=== PATIENT | female | born 1965 | race Caucasian/White ===

== ENCOUNTER 2018-05-15 10:03 | Day surgery (SDC) | payer OTHER ==
[2018-05-13 12:25] VITALS: BMI 41.1
[2018-05-15 10:29] VITALS: TEMP 98.2
[2018-05-15] MEDS ORDERED: LIDOCAINE HCL 2% (20ML MULTI-DOSE VIAL) NR ONE (10:48)
[2018-05-15] MEDS ORDERED: PROPOFOL 20 ML ONE ×2 (10:54→11:46)
[2018-05-15] MEDS ORDERED: MIDAZOLAM HCL 2 MG/2 ML SINGLE DOSE VIAL ONE (10:54)
[2018-05-15] MEDS ORDERED: LIDOCAINE HCL/PF 2% SDV 5ML VIAL ONE (10:54)
[2018-05-15] MEDS ORDERED: LIDOCAINE HCL 2% (50ML VIAL) NR ONE (11:30)
[2018-05-15] MEDS ORDERED: ONDANSETRON 4 MG/2 ML VIAL IVPUSH PRN (11:52)
[2018-05-15] MEDS ORDERED: oxyCODONE HCL 5 MG TABLET PO PRN ×2 (11:52)
[2018-05-15] MEDS ORDERED: PROMETHAZINE HCL 25 MG/1 ML VIAL IVPUSH PRN (11:52)
[2018-05-15 13:38] VITALS: BP 120/60; PULSE 64
--- NOTE | 2018-05-16 09:47 | OP ---
DATE OF OPERATION: 05/15/2018 PREOPERATIVE DIAGNOSIS: Left carpal tunnel syndrome. POSTOPERATIVE DIAGNOSIS: Left carpal tunnel syndrome. OPERATIVE PROCEDURE: Left carpal tunnel release. ANESTHESIA: Local with sedation. COMPLICATIONS: None. ESTIMATED BLOOD LOSS: Minimal. INDICATION FOR PROCEDURE: The patient is a 52-year-old female with the above finding, indicated for operative treatment. Risks, benefits, and alternatives were discussed with the patient at length. Proper informed consent was obtained. PROCEDURE: After proper identification of the patient and correct operative site, patient was brought to the operating room and placed supine on the operative table. Prominences were well padded. Sedation and local anesthesia were given. Left upper extremity was prepped and draped in usual sterile fashion. A well-padded tourniquet was placed with a sterile prep. An Esmarch bandage was used to exsanguinate the left upper extremity. Tourniquet was inflated to 250 mmHg. A longitudinal incision was made in the proximal aspect of the palm. Incision was taken sharply through the skin with blunt and sharp dissection through the subcutaneous tissues. Palmar fascia was divided longitudinally. Transcarpal ligament was divided longitudinally along with the distal 4 cm of the antebrachial fascia under direct visualization with loupe magnification. This provided complete release of the median nerve at the wrist. Wound was repaired with a 5-0 fast-absorbing plain-gut suture. Sterile dressings were applied. Patient was brought to Recovery in stable condition. She tolerated the procedure well. SHAY GTZ M.D. [id number]
== END 2018-05-15 13:00 | disposition home or self-care (01) ==
LOC: FASU 10:03
PROVIDERS: ATTEND Orthopaedic Surgery Hand Surgery
PROC: 01N50ZZ Release Median Nerve, Open Approach (ICD-10-PCS; principal; 2018-05-15 11:35)
DX: G56.02 Carpal tunnel syndrome, left upper limb (principal)
CPT/HCPCS: 84703

== ENCOUNTER 2019-11-26 07:23 | Day surgery (SDC) | payer OTHER ==
--- OUTSIDE RECORDS SUMMARY | 2019-11-12 11:33 | XMS ---
:1965 [facility] Providers Name Role Phone Stephanie Ely Unavailable [email or web address] Stephanie Ely Unavailable [email or web address] Stephanie Ely Unavailable [email or web address] Stephanie Ely Unavailable [email or web address] CHIQUIS CHASE MD Unavailable Unavailable MELNIKAU Unavailable Unavailable RIZQALLA Unavailable Unavailable GENESIS RAMIREZ Unavailable Unavailable Lola Deshpande PA-C Unavailable Lola Deshpande PA-C Unavailable Lola Deshpande PA-C Unavailable Justice WEBSTER Unavailable Unavailable Justice WEBSTER Unavailable Unavailable Justice WEBSTER Unavailable Unavailable Justice WEBSTER Unavailable Unavailable Justice WEBSTER Unavailable Unavailable Justice WEBSTER Unavailable Unavailable BHAVIN WEBSTER, ILYA Unavailable Unavailable Re-disclosure Warning The records that you are about to access may contain information from federally- assisted alcohol or drug abuse programs. If such information is present, then the following federally mandated warning applies: This information has been disclosed to you from records protected by federal confidentiality rules (42 CFR part 2). The federal rules prohibit you from making any further disclosure of this information unless further disclosure is expressly permitted by the written consent of the person to whom it pertains or as otherwise permitted by 42 CFR part 2. A general authorization for the release of medical or other information is NOT sufficient for this purpose. The Federal rules restrict any use of the information to criminally investigate or prosecute any alcohol or drug abuse patient.The records that you are about to access may contain highly sensitive health information, the redisclosure of which is protected by Article 27-F of the [facility] Public Health law. If you continue you may haveaccess to information: Regarding HIV / AIDS; Provided by facilities licensed or operated by the [facility] Office of Mental Health; or Provided by the [facility] Office for People With Developmental Disabilities. If such information is present, then the following [facility] mandated warning applies: This information has been disclosed to you from confidential records which are protected by state law. State law prohibits you from making any further disclosure of this information without the specific written consent of the person to whom it pertains, or as otherwise permitted by law. Any unauthorized further disclosure in violation of state law may result in a fine or fdc sentence or both. A general authorization for the release of medical or other information is NOT sufficient authorization for further disclosure. Advance Directives Directive Description Laborer Airport Maintenance Ct Scan Technician Status Observation Data S ource(s) Description 1. NONE [facility] 1. NONE [facility] 1. NONE [facility] 1. NONE [facility] 1. NONE [facility] 1[facility] NONE [facility] 1. NONE [facility] 1. NONE [facility] 1. NONE [facility] 1. NONE [facility] 1. NONE [facility] 1. NONE [facility] 1. NONE [facility] Allergies and Adverse Reactions Type Description Substance Reaction Status Data Source(s ) Propensity to DOG DANDER Dog Dander Itching Medium Active [facility] adverse reactions (qualifier [facility] to substance value) [facility] Medium Propensity to CAT DANDER Cat Dander Itching Medium Active (qualifier [facility] adverse reactions value) [facility] to substance [facility] Medium Drug allergy No Known Allergies No Known Allergies [facility] Encounters Encounter Providers Location Date Indications Data Source(s ) Outpatient 01/27/2019 02:15:00 [facility] PM EST - 01/27/2019 [facility] 02:23:06 PM EST Patient discharged. Outpatient 01/05/2019 [facility] ([facility] 06:53:00 AM EST [facility] Outpatient 01/04/2019 [facility]EXTGEN ([facility] 06:44:00 AM EST [facility]) Outpatient 12/05/2018 [facility]20[facility] 11:59:00 PM EDT Outpatient 12/05/2018 [facility] - Good 08:18:44 AM EDT - Sydnee an 12/05/2018 Hospital 11:59:00 PM EDT Outpatient 10/10/2018 [facility] 01:39:54 PM EDT [facility] System [facility] Outpatient Attender: SILVIA KAYE 09/24/2018 CHEST PAIN R/O ACS [facility] R 10:18:00 PM EDT - HYPOKALEMIA MDAttender: 09/25/2018 TOMER 12:54:00 AM EDT ERIANAttender: FRANCESCA Ramirez r: NATALEE LLOYDAAjosé miguel r: FRANCESCA Plasencia ant: CHIQUIS CHASE MDConsultant: Clarita Deshpande PA-C CHEST PAIN R/O ACS HYPOKALEMIA Patient discharged. Outpatient Attender: Joycelyn 04/25/2018 12:00:00 AM [place]ELITZA [place] Justice MDReferrer: EDT Escobar edical) Brownminerva Ely Outpatient 04/15/2018 01:00:00 PM [facility] Cenify Care Team Connect [facility] Outpatient 04/15/2018 12:00:00 AM [facility] Cenify Let's Gift It [facility] Outpatient 04/04/2018 05:27:43 PM Geovanni n SecCalligo [facility] Outpatient 03/29/2018 11:40:02 AM Geovanni n SecHealcerion Tess CN Creative [facility] Outpatient 03/28/2018 01:08:07 PM [facility] 01:37:19 PM EST Outpatient 03/28/2018 12:00:00 AM Geovanni n SecCalligo [facility] Medications Medication Brand Start Product Dose Route Administrative Pharmacy St at Indications Reaction Description Data Name Date Form Instructions Instructions Source(s) celecoxib celeco Oral active Take 1 Ca p Bon 200 MG Oral xib 2019 mg by mouth Seco urs Capsule (CELEB 12:00: daily as Rupali ity celecoxib JEREMY) 00 AM needed for Hea lth (CELEBREX) 200 mg EST Pain for up [facility] 200 mg capsul to 15 days. capsule e technetium IntraV complet 30 Geovanni n sestamibi 2018 mCi ENous ed millicurie, Se cours (CARDIOLITE 09:30: IntraVENous , Tess ) injection 00 AM RAD ONCE, 1 Health 30 EDT dose, [place] [facility] millicurie 12/05/18 at 1000 Medication administered onsite regadenoson [id number] 12/05/2018 0.4 IntraVENous completed 0.4 mg, Bon (LEXISCAN) 09:00:00 AM mg IntraVE Nous, [facility]ours injection 0.4 EDT ONCE, 1 dos e, Tess mg Lorena 12/05/18 Health at 0900 System Inc Medication administered onsite technetium 12/05/2018 10 IntraVENous completed 10 Bon sestamibi 09:00:00 AM mCi millicur ie, Sec[facility] (CARDIOLITE) EDT IntraVENous, Tess injection 10 RAD ONCE, 1 Health millicurie dose, [place] Syst em 12/05/18 at Inc 0900 Medication administered onsite desloratadine desloratadine 03/28/2018 5 mg Oral aborted Take 1 Bon 5 MG Oral (CLARINEX) 5 12:00:00 AM Tab by [facility] Tablet mg tablet EST mouth Tess desloratadine daily. Heal th (CLARINEX) 5 System mg tablet Inc Omeprazole 40 omeprazole 03/28/2018 40 mg Oral aborted Take 1 Bon MG Delayed (PRILOSEC) 40 12:00:00 AM Cap by [facility] Release Oral mg capsule EST mouth Tess Capsule nightly. Health omeprazole System (PRILOSEC) 40 Inc mg capsule 60 ACTUAT ADVAIR DISKUS 03/26/2018 aborted Bon Fluticasone 250-50 12:00:00 AM [facility] propionate mcg/dose EST Caity ty 0.25 MG/ACTUAT diskus inhaler Health / salmeterol System 0.05 MG/ACTUAT Inc Dry Powder Inhaler [Advair] ADVAIR DISKUS 250-50 mcg/dose diskus inhaler Prednisone 10 predniSONE 01/16/2018 10 mg Oral aborted Take 10 Bon MG Oral Tablet (DELTASONE) 10 12:00:00 AM mg by [facility] predniSONE mg tablet EST mouth Janice rity (DELTASONE) 10 three (3) Health mg tablet times System daily. Inc For 5d, 1 bid for 5d and 1 every day for 5d Nystatin nystatin 12/10/2017 524562 Oral aborted T kika 5 mL Bon 139901 UNT/ML (MYCOSTATIN) 12:00:00 AM U by mouth Secours Oral 100,000 EST four (4) Tess Suspension unit/mL times Healt h nystatin suspension daily. Sys tem (MYCOSTATIN) swish and In c 100,000 spit unit/mL suspension montelukast 10 montelukast 11/30/2017 10 mg Oral aborted Take 1 Bon MG Oral Tablet (SINGULAIR) 10 12:00:00 AM Tab by [facility] montelukast mg tablet EDT mouth Ch arity (SINGULAIR) 10 nightly. H ealth mg tablet System Inc Omeprazole 40 omeprazole 11/30/2017 40 mg Oral aborted Take 1 Bon MG Delayed (PRILOSEC) 40 12:00:00 AM Cap by [facility] Release Oral mg capsule EDT mouth Tess Capsule nightly. Health omeprazole System (PRILOSEC) 40 Inc mg capsule fluticasone Fluticasone 50 11/22/2017 2 Both aborted 2 Sprays Bon (FLONASE) 50 McG/Actuation 12:00:00 AM {spray} Nostrils by Both [facility] mcg/actuation Nasal [place], EDT Nos trils Tess nasal spray Susp route Health daily. System Inc azelastine Azelastine 137 11/09/2017 1 Both aborted 1 [place] Bon (ASTELIN) 137 McG Nasal 12:00:00 AM {spray} Nostrils by Both [facility] mcg (0.1 %) [place] Aerosol EDT Nost rils Tess nasal spray route two Hea lth (2) times System a day. Inc Use in each nostril as directed Guaifenesin MUCUS RELIEF 10/30/2017 aborted Bon 400 MG Oral 400 mg tablet 12:00:00 AM [facility] Tablet MUCUS EDT Tess RELIEF 400 mg Health tablet System Inc benzonatate benzonatate 10/23/2017 aborted Bon 100 MG Oral (TESSALON) 100 12:00:00 AM [facility] Capsule mg capsule EDT Charit y benzonatate Health (TESSALON) 100 Syste m mg capsule Inc Lisinopril 5 lisinopril 03/30/2017 active Bon MG Oral Tablet (PRINIVIL, 12:00:00 AM [facility] lisinopril ZESTRIL) 5 mg EST Etss (PRINIVIL, tablet Health ZESTRIL) 5 mg System tablet Inc Losartan losartan 03/30/2017 active Bon Potassium 100 (COZAAR) 100 12:00:00 AM [facility] MG Oral Tablet mg tablet EST Tess losartan Health (COZAAR) 100 System mg tablet Inc Amlodipine 5 amLODIPine 12/16/2015 5 mg Oral aborted Take 1 Bon MG Oral Tablet (NORVASC) 5 mg 12:00:00 AM Tab by [facility] amLODIPine tablet EST mouth Charit y (NORVASC) 5 mg daily. Hea lt tablet System Inc [place]-3 Fatty 769584 1 Oral active Take 1 Bon Acids (FISH {capsul Cap by Sec ours OIL) 500 mg e} mouth Tess cap daily. Let's Gift It System [employer] Insurance Providers Payer name Policy type Policy ID Covered Covered libertarian's Policy P alyson / Coverage libertarian ID relationship to Bailey Inf ormation type bailey [facility] [id number] MEDICAID [facility] [id number] [facility] [id number] [facility] [id number] [facility] [id number] [facility] Managed Care [id number] MED[place] MVP [id number] 800 HEALTH PLAN MVP MEDICAID [id number] Patient is [id number] Insured [facility] [id number] Patient is [id number] Insured MVP MEDICAID [id number] SP [id number] [facility] [id number] SP [id number] [facility] [id number] [facility] [id number] [facility] [id number] [facility] [id number] [facility] Problems, Conditions, and Diagnoses Code Display Name Description Problem Type Effective Dates Data Source(s) R05 Chronic cough Chronic cough 34969741 12/01/2017 [facility] 12:00:00 AM EDT Tess H ealth [facility] I10 Essential Essential 00212802 12/01/2017 [facility] hypertension hypertension 12:00:00 AM EDT [facility]ec[facility] Care Team Connect Inc E66.01 Obesity, morbid Obesity, morbid [id number] 04/19/2017 [facility] 12:00:00 AM EDT [employer] Z09 Follow up Follow up [id number] 11/09/2015 [facility] 12:00:00 AM EDT [employer] [employer] G56.03 Carpal tunnel Carpal tunnel Diagnosis NEXTGEN syndrome, syndrome, ([place] bilateral upper bilateral upper Medi ralph) limbs limbs M54.16 Radiculopathy, Radiculopathy, Diagnosis 01/27/2019 [facility] lumbar region lumbar region 01:56:15 PM EST [employer] R10.30 Lower abdominal Lower abdominal Diagnosis 01/27/2019 [facility] pain, unspecified pain, unspecified 01:56:15 PM [facility] [place] R07.9 Chest pain, Chest pain, Diagnosis 12/05/2018 [facility] - Good unspecified unspecified 07:30:00 AM EDT [facility] R06.00 Dyspnea, DYSPNEA, Diagnosis 09/27/2018 [facility] unspecified UNSPECIFIED 10:10:00 AM EDT E83.51 Hypocalcemia HYPOCALCEMIA Diagnosis 09/27/2018 [facility] 10:10:00 AM EDT E87.6 Hypokalemia HYPOKALEMIA Diagnosis 09/27/2018 [facility] 10:10:00 AM EDT R00.2 Palpitations PALPITATIONS Diagnosis 09/27/2018 [facility] 10:10:00 AM EDT R07.9 Chest pain, CHEST PAIN, Diagnosis [facility] UNSPECIFIED 10:10:00 AM EDT R07.89 Other chest pain OTHER CHEST PAIN Diagnosis 09/27/2018 [facility] 10:10:00 AM EDT J30.9 Allergic rhinitis, Allergic rhinitis, Diagnosis 9 [facility] unspecified unspecified 01:08:07 PM EST [place] Surgeries/Procedures Procedure Description Date Indications Data Source(s) MYOCARDIAL SPECT <td><content 12/05/2018 Chest pain [facility] MULTIPLE STUDIES ID="[id number]"> 03:09:29 PM [facility] NUCLEAR CARDIAC SPECT EDT System Inc STRESS & REST</content></td><t d>Routine</td><td> 11:09 AM EDT</td><td><paragrap h>Chest pain</paragraph></td> <td><paragraph styleCode="header">Re sults for this procedure are in the <content styleCode="xLink2-Res [id number]">results section</content>.</p aragraph></td> Chest pain MUSC TST DONE W/NERV TST 04/25/2018 12:00:00 AM EDT - PENDING SALE TO [facility] ([facility]) MAO 04/25/2018 12:00:00 AM EDT NRV CNDJ TEST 11-12 04/25/2018 12:00:00 AM EDT - PENDING SALE TO [facility] ([facility]) STUDIES 04/25/2018 12:00:00 AM EDT Results ID Date Data Source [id number] 12/09/2018 06:16:02 PM EST [facility] - Go [address] [place], [place] [address]MGJYMFI: SANTO RANKINRN: [id number]: [id number]#: [id number] DATE: 12/05/2018 STRESS TESTLEXISCAN STRESS TESTTECHNIQUE: This is a 53-year-old fe male who came in for evaluation for chestpainwith mildly reduced LV ejection fraction. The patient had a Lexiscan stresstest,0.4 mg of Lexiscan injected f ollowed by sestamibi Cardiolite injection. Thepatientcomplained of shortness of ki ath after Lexiscan. Baseline EKG is normal sinusrhythm. No atrial or ventricular a rrhythmia. No ST-T changes suggestingischemiathough heart rate was 96 per minute, highest heart rate was about 100 perminute,lowest blood pressure was 135/86 mmHg, highest blood pressure was 165/89 mmHg.Overall, the patient tolerat ed well. Mild shortness of breath after Lexiscaninjection.IMPRESSION: No electr ocardiogram ischemia.RECOMMENDATIONS: Further recommendation after nuclear vladimir ging report. STEPHANIE NORTON MDDD: 12/05/2018 10 :42:46/MA /[id number] #: [id number] / [id number] Name Value Range Interpretation Code Description Data Dayana rce(s) Supporting Document(s ) ID Date Data Source [id number] 12/05/2018 09:55:19 AM EDT [facility] Pt received in Nuc Med Dept. ID confirm ed verbally and ID band. Pt statesshe's here for stress test. . Pre procedure chec klist completed: VSS.Procedure explained: Questions answered. Pt states she is no t : 11/30/2018. Saline lock in right arm: patent. Dr. Norton t be dside.Procedure started: patient tolerated well. VSS throughout. Post EKG/ VScomp leted and wnl. Pts saline lock dcd. Pt instructed to return to departmentin 30 minutes. Pt in satisfactory upon discharge from Nuc Med department. Name Value Range Interpretation Code Description Data Dayana rce(s) Supporting Document(s ) ID Date Data Source [id number] 09/25/2018 10:40:03 AM EDT [facility] EXAM: Portable Chest 10:49 PM HISTORY: Chest pain. REPORT: The lungs are clear. There is no pleural effusion. The cardiac, hilarand mediastinal silhouettes are unremarkable.IMPRESSION: No acute di sease. Name Value Range Interpretation Code Description Data Dayana rce(s) Supporting Document(s ) ID Date Data Source [id number] 09/25/2018 12:01:00 AM EDT [facility] Name Value Range Interpretation Description Data Sup porting Code Source(s) Document(s ) TSH REFLEX 1.40 0.40-4.00 [facility] ID Date Data Source [id number] 09/24/2018 11:55:00 PM EDT [facility] Name Value Range Interpretation Code Description Data Dayana rce(s) Supporting Document(s ) APTT 21.8 SEC 23.3-32.5 Below low normal [facility] This test is used to monitor H eparin Therapy ID Date Data Source [id number] 09/24/2018 11:55:00 PM EDT [facility] Name Value Range Interpretation Code Description Data Dayana rce(s) Supporting Document(s ) . * [facility] INR Range: 2.0 - 3.0 STD Dose: P rophylaxis and treatment of venous thrombosis, pulmonary embo lism or prevention of systemic embolism. INR Range: 2.5 - 3.5 High Dose: High Risk patients with mechanical heart valves. INR 0.97 0.9-1.1 [facility] . * [facility] . PT 10.3 SEC 9.6-11.8 [facility] This test is used to monitor Oral Anticoagulant Therapy ID Date Data Source [id number] 09/24/2018 11:54:00 PM EDT [facility] Name Value Range Interpretation Description Data Sup porting Code Source(s) Document(s ) GLUCOSE 128 70-110 Above high normal [place] MG/DL [facility] BUN 11 MG/DL 6-22 [facility] CREATININE 0.62 0.50-1.2 [place] MG/DL 0 Hospital SODIUM 143 135-145 [place] MMOL/L [facility] POTASSIUM 3.1 3.5-5.1 Below low normal [place] mmol/L [facility] CHLORIDE 112 98-106 Above high normal [place] MMOL/L [facility] CO2 18 20-29 Below low normal [place] MMOL/L [facility] CALCIUM 7.0 8.7-10.7 Below low normal [place] mg/dL [facility] TOT PROT 6.0 G/DL 6.1-8.0 Below low normal [facility] ALBUMIN 3.4 G/DL 3.3-5.0 [facility] GLOBULIN 2.6 G/DL 1.3-4.5 [facility] BILIRUBIN,TOTA <0.2 0.3-1.2 Below low normal [place] L mg/dL [facility] ALK PHOS 59 U/L 50-136 [facility] SGOT (AST) 14 U/L 8-42 [facility] SGPT (ALT) 15 U/L 30-65 Below low normal [facility] eGFR >60 ">60.0" [facility] mL/min./1.73 square meter eGFR IF >60 ">60.0" [facility] mL/min./1.73 square meter BILIRUBIN,DIRECT <0.2 MG/DL 0.0-0.3 [facility] al ID Date Data Source [id number] 09/24/2018 11:54:00 PM EDT [facility] Name Value Range Interpretation Description Data Sup porting Code Source(s) Document(s ) TROPONIN I <0.3 "<0.3" [place] ng/ml Hospital ID Date Data Source [id number] 09/24/2018 11:37:00 PM EDT [facility] Name Value Range Interpretation Description Data Sup porting Code Source(s) Document(s ) WHITE BLOOD 7.0 4.0-11.5 [place] [facility] RBC 4.22 4.20-5.[address] HEMOGLOBIN 10.3 12.0-16. Below low normal [place] g/dL [address] [place] [address] HEMATOCRIT 33.7 % 37.0-47. Below low normal [address] MCV 79.9 FL 81.0-99. Below low normal [address] MCH 24.4 PG 27.0-31. Below low normal [address] MCHC 30.6 33.0-37. Below low normal [place] G/DL [address] [place] [address] RDW 15.2 % 11.5-14. Above high normal [address] PLT 316 140-440 [facility] MPV 9.5 FL 7.4-10.4 [facility] NEUT% 68 % [facility] IMM GRAN% 0 % [facility] LYMPH% 27 % [facility] MONO% 4 % [facility] EOS% 1 % [facility] BASO% 0 % [facility] NEUT ABS 4.7 1.7-8.6 [place] X10E3/[facility] IMM GRAN ABS 0.0 0.0-0.1 [place] x10E3/[facility] LYMPH ABS 1.9 0.8-5.9 [place] X10E3/[facility] MONO ABS 0.3 0.0-1.[address] [place] [id number] EOS ABS 0.1 0.0-0.[address] [place] [id number] BASO ABS 0.0 0.0-0.2 [place] X10E3/uL Hospital Procedure Social History Code Duration Value Status Description Data Source(s ) Alcohol intake 01/27/2019 Current completed Current [place] s 12:00:00 AM EST non-drinker of non-drinker of [facility] alcohol alcohol (finding) [facility] (finding) Smoking 01/27/2019 Never smoker completed Never smoker [place] s 12:00:00 AM EST [employer] Smoking 03/28/2018 Never smoker completed Never smoker [place] s 12:00:00 AM EST [employer] Alcohol intake No completed [place] Vital Signs ID Date Data Source UNK Name Value Range Interpretation Code Description Data Source(s) Body mass index 38.11 kg/m2 38.11 kg/m2 Minka Sec ours (BMI) [Ratio] [employer] Body weight 103.874 kg 103.874 kg [employer] Body height 165.1 cm 165.1 cm [employer] Respiratory rate 17 /min 17 /min [facility] [employer] Body temperature 36.67 Rosalva 36.67 Rosalva [facility] [employer] Heart rate 71 /min 71 /min [employer] Diastolic blood 80 mm[Hg] 80 mm[Hg] [facility] pressure [employer] Systolic blood 132 mm[Hg] 132 mm[Hg] [place] s pressure [place] Oxygen saturation 98 % 98 % [facility] in Arterial blood [employer] by Pulse oximetry System Inc Respiratory rate 16 /min 16 /min [facility] [employer] Heart rate 85 /min 85 /min [employer] Diastolic blood 86 mm[Hg] 86 mm[Hg] [facility] pressure [employer] Systolic blood 135 mm[Hg] 135 mm[Hg] [place] s pressure [employer] Body mass index 36.61 kg/m2 36.61 kg/m2 [facility] (BMI) [Ratio] [employer] Body weight 99.791 kg 99.791 kg [employer] Body height 165.1 cm 165.1 cm [employer] Body mass index 42.07 kg/m2 42.07 kg/m2 Loc Sec ours (BMI) [Ratio] [facility] Body weight 104.327 kg 104.327 kg Loc Mayer Measured Tess Care Team Connect [facility] Body height 157.5 cm 157.5 cm Loc Paxeraleif [employer] [facility] Respiratory rate 22 /min 22 /min [facility] urs [employer] [facility] Body temperature 37.06 Rosalva 37.06 Rosalva Loc Seco urs [employer]DARA [employer] [facility] Heart rate 97 /min 97 /min Loc Paxeraleif [employer] [facility] Diastolic blood 81 mm[Hg] 81 mm[Hg] Loc Buenoou rs pressure [employer]DARA [employer] [facility] Systolic blood 120 mm[Hg] 120 mm[Hg] [place] s pressure [employer]DARA [employer] [facility] Patient Treatment Plan of Care Planned Activity Planned Date Details Description Data Source (s) celecoxib 200 MG Oral 01/27/2019 12:00:00 [facility] Tess Capsule [facility] nc desloratadine 5 MG Oral 03/28/2018 12:00:00 [facility] Tess Tablet [facility] nc Omeprazole 40 MG Delayed 03/28/2018 12:00:00 [facility] Tess Release Oral Capsule [facility] 60 ACTUAT Fluticasone 03/26/2018 12:00:00 [facility] Tess propionate 0.25 MG/ACTUAT [facility] / salmeterol 0.05 MG/ACTUAT Dry Powder Inhaler [Advair] Prednisone 10 MG Oral 01/16/2018 12:00:00 [facility] Tess Tablet [facility] nc Nystatin 219703 UNT/ML 12/10/2017 12:00:00 [facility] Tess Oral Suspension [facility] montelukast 10 MG Oral 11/30/2017 12:00:00 [facility] Tess Tablet [facility] nc Omeprazole 40 MG Delayed 11/30/2017 12:00:00 [facility] Tess Release Oral Capsule [facility] fluticasone (FLONASE) 50 11/22/2017 12:00:00 [facility] Tess mcg/actuation nasal spray [facility] azelastine (ASTELIN) 137 11/09/2017 12:00:00 [facility] Tess mcg (0.1 %) nasal spray AM [facility] Guaifenesin 400 MG Oral 10/30/2017 12:00:00 [facility] Tess Tablet AM [facility] I nc benzonatate 100 MG Oral 10/23/2017 12:00:00 [facility] Capsule AM [facility] I [facility] Losartan Potassium 100 MG 03/30/2017 12:00:00 [facility] Oral Tablet AM [facility] Lisinopril 5 MG Oral 03/30/2017 12:00:00 [facility] Tablet AM [facility] I nc Amlodipine 5 MG Oral 12/16/2015 12:00:00 [facility] Tablet AM [facility] I nc [place]-3 Fatty Acids (FISH Ge[facility] OIL) 500 mg [facility]
[2019-11-20 10:51] VITALS: BMI 42.0
--- OUTSIDE RECORDS SUMMARY | 2019-11-26 07:27 | XMS ---
:1965 Author Organization [facility] Care Team Providers Name Role Phone CHIQUIS CHASE MD Unavailable Unavailable FILIBERTO Unavailable Unavailable LAKESHIA Unavailable Unavailable GENESIS RAMIREZ Unavailable Unavailable Lola Deshpande PA-C Unavailable Lola Deshpande PA-C Unavailable Lola Deshpande PA-C Unavailable BHAVIN WEBSTER, ILYA Unavailable Unavailable Re-disclosure [...] is protected by Article 27-F of the [place] State Public Health law. If you continue you may haveaccess to information: Regarding HIV / AIDS; Provided by facilities licensed or operated by the [facility] Office of Mental Health; or Provided by the [facility] Office for People With Developmental Disabilities. If such information is present, then the following [facility] mandated warning applies: This information has [...] law may result in a fine or fpc sentence or both. A general authorization for the release of medical or other information is NOT sufficient authorization for further disclosure. Allergies and Adverse Reactions Type Description Substance Reaction Status Data Source(s ) Propensity to DOG DANDER Dog Dander Itching Medium Active [facility] adverse reactions (qualifier [facility] to substance value) [facility] Medium Propensity to CAT DANDER Cat Dander Itching Medium Active (qualifier [facility] adverse reactions value) Tess [employer] to substance [facility] Medium Encounters Encounter Providers Location Date Indications Data Source(s ) Outpatient 01/27/2019 02:15:00 [facility] PM EST - 01/27/2019 [facility] 02:23:06 PM EST Patient discharged. Outpatient 01/05/2019 [facility] ([facility] 06:53:00 AM EST [facility] Outpatient 01/04/2019 [facility] ([facility] 06:44:00 AM [facility] Outpatient 12/05/2018 [facility] - Good 08:20:01 AM EDT - [facility] 12/05/2018 Hospital 11:59:00 PM EDT Outpatient 12/05/2018 [facility] - Good 08:18:44 AM EDT - [facility] 12/05/2018 Hospital 11:59:00 PM EDT Outpatient 10/10/2018 [facility] 01:39:54 PM EDT [facility] Outpatient Attender: SILVIA KAYE 09/24/2018 [facility] PM EDT - HYPOKALEMIA MDAttender: 09/25/2018 TOMER 12:54:00 AM EDT ERIANAttender: FRANCESCA Ramirez r: NATALEE Ansari r: FRANCESCA Plasencia ant: CHIQUIS CHASE MDConsultant: Clarita Deshpande PA-C CHEST PAIN R/O ACS HYPOKALEMIA Patient discharged. Medications Medication Brand Start Product Dose Route Administrative Pharmacy [facility] Indications Reaction Description Data Name Date Form Instructions Instructions Source(s) celecoxib celeco 12/23/ 200 Oral active Take 1 Ca p Bon 200 MG Oral xib 2019 mg by mouth Seco urs Capsule (CELEB 12:00: daily as Rupali ity celecoxib JEREMY) 00 AM needed for [facility]a [facility] (CELEBREX) 200 mg EST Pain for up [facility] 200 mg capsul to 15 days. capsule e technetium IntraV complet 30 Geovanni n sestamibi 2019 mCi ENous ed millicurie, Se cours (CARDIOLITE 09:30: IntraVENous , Tess ) injection 00 AM RAD ONCE, 1 Health 30 EDT dose, Lorena [facility] millicurie 12/05/18 at 1000 Medication administered onsite regadenoson [id number] 12/05/2018 0.4 IntraVENous completed 0.4 mg, Bon [...] at Inc 0900 Medication administered onsite desloratadine 5 desloratadine 03/28/2018 5 mg Oral aborted Take 1 Bon MG Oral Tablet (CLARINEX) 5 mg 12:00:00 AM Tab by Secours desloratadine tablet EST mouth Janice rity (CLARINEX) 5 mg daily. He alth tablet [facility] Omeprazole 40 omeprazole 03/28/2018 40 Oral aborted Take 1 Bon MG Delayed (PRILOSEC) 40 12:00:00 AM mg Cap [facility] Release Oral mg capsule EST mouth Tess Capsule nightly. Health omeprazole System (PRILOSEC) 40 Inc mg capsule 60 ACTUAT ADVAIR DISKUS 03/26/2018 aborted Bon Fluticasone 250-50 mcg/dose 12:00:00 [facility] propionate 0.25 diskus inhaler EST Tess MG/ACTUAT / Health salmeterol 0.05 Syst em MG/ACTUAT Dry Inc Powder Inhaler [Advair] ADVAIR DISKUS 250-50 mcg/dose diskus inhaler montelukast 10 montelukast 11/30/2017 10 Oral aborted Take 1 Bon MG Oral Tablet (SINGULAIR) 10 12:00:00 AM mg Tab by [facility] montelukast mg tablet EDT mouth Ch arity (SINGULAIR) 10 nightly. H ealth mg tablet [facility] Guaifenesin 400 MUCUS RELIEF 10/30/2017 aborted Bon MG Oral Tablet 400 mg tablet 12:00:00 AM [facility] MUCUS RELIEF EDT Tess 400 mg tablet Health [facility] Amlodipine 5 MG amLODIPine 12/16/2015 5 mg Oral aborted Take 1 Bon Oral Tablet (NORVASC) 5 mg 12:00:00 AM Tab by [facility] amLODIPine tablet EST mouth Charit y (NORVASC) 5 mg daily. [facility] tablet [facility] Insurance Providers Payer name Policy type Policy ID Covered Covered republican's Policy P alyson / Coverage republican ID relationship to [place] Inf ormation type [place] [id number] SP [id number] [facility] [id number] MEDICAID [facility] [id number] HEALTH PLAN [facility] [id number] HEALTH PLAN [facility] [id number] 800 HEALTH [facility] [id number] 800 HEALTH [facility] Managed Care [id number] MED[place] [id number] 800 HEALTH PLAN MVP MEDICAID [id number] Patient is [id number] Insured [facility] [id number] Patient is [id number] Insured [facility] [id number] SP [id number] CARE [facility] [employer]andas Group O [id number] PLAN [facility] [id number] PLAN [facility] [id number] PLAN [facility] [id number] [facility] Problems, Conditions, and Diagnoses Code Display Name Description Problem Type Effective Dates Data Source(s) M54.16 Radiculopathy, Radiculopathy, Diagnosis 01/27/2019 [facility] cours lumbar region lumbar region 01:56:15 PM [facility] R10.30 Lower abdominal Lower abdominal Diagnosis 01/27/2019 [facility], unspecified pain, unspecified 01:56:15 PM EST [facility] R07.9 Chest pain, Chest pain, Diagnosis 12/05/2018 [facility] unspecified unspecified 07:30:00 AM EDT [facility] R06.00 Dyspnea, DYSPNEA, Diagnosis 09/27/2018 [facility] unspecified UNSPECIFIED 10:10:00 AM EDT E83.51 Hypocalcemia HYPOCALCEMIA Diagnosis 09/27/2018 [facility] 10:10:00 AM EDT E87.6 Hypokalemia HYPOKALEMIA [facility] R00.2 Palpitations PALPITATIONS Diagnosis 09/27/2018 [facility] 10:10:00 AM EDT R07.9 Chest pain, CHEST PAIN, Diagnosis 09/27/2018 [facility] unspecified UNSPECIFIED 10:10:00 AM EDT R07.89 Other chest pain OTHER CHEST PAIN Diagnosis 09/27/2018 [facility] 10:10:00 AM EDT Surgeries/Procedures Procedure Description Date Indications Data Source(s) MYOCARDIAL SPECT <td><content 12/05/2018 Chest pain [facility] MULTIPLE STUDIES ID="[id number]"> 03:09:29 PM [facility] NUCLEAR CARDIAC SPECT EDT [facility] STRESS & REST</content></td><t d>Routine</td><td> 11:09 AM EDT</td><td><paragrap h>Chest pain</paragraph></td> <td><paragraph styleCode="header">Re sults for this procedure are in the <content styleCode="xLink2-Res [id number]">results section</content>.</p aragraph></td> Chest pain Results ID Date Data Source [id number] 12/09/2018 06:16:02 PM EST [facility] - [facility] [place] Self [id number]: FAHEEM RANKIN: [id number]: [id number]#: [id number] DATE: 12/05/2018 STRESS TESTLEXISCAN STRESS TESTTECHNIQUE: This [...] Further recommendation after nuclear vladimir ging report. LORAINE NORTON, MDDD: 12/05/2018 10 :42:46/MA /[id number] #: [id number] / [id number] Name Value Range Interpretation Code Description Data Dayana rce(s) Supporting Document(s ) ID Date Data Source [id number] 12/05/2018 09:55:19 AM EDT [facility] Pt received in Nuc Med Dept. ID confirm ed verbally and ID band. Pt statesshe's here for stress test. . Pre procedure che klist completed: VSS.Procedure explained: Questions answered. Pt states she is no t : LMP1. Saline lock in right arm: patent. Dr. Norton t be dside.Procedure started: patient tolerated well. VSS throughout. Post EKG/ VScomp leted and wnl. Pts saline lock dcd. Pt instructed to return to departmentin 30 minutes. Pt in satisfactory upon discharge from [facility] Med department. Name Value Range Interpretation Code Description Data Dayana rce(s) Supporting Document(s ) Procedure Social History Code Duration Value Status Description Data Source(s ) Alcohol intake 01/27/2019 Current completed Current Royal s 12:00:00 AM EST non-drinker of non-drinker of Dinnr alcohol alcohol (finding) [facility] (finding) Smoking 01/27/2019 Never smoker completed Never smoker Royal s 12:00:00 AM EST [facility] [employer] Vital Signs ID Date Data Source UNK Name Value Range Interpretation Code Description Data Source(s) Body mass index 38.11 kg/m2 38.11 kg/m2 Bon [facility] ours (BMI) [Ratio] [employer] Body weight 103.874 kg 103.874 kg [employer] Body height 165.1 cm 165.1 cm [employer] Respiratory rate 17 /min 17 /min [email or web address] [facility] [employer] Body temperature 36.67 Rosalva 36.67 Rosalva [employer] Heart rate 71 /min 71 /min [employer] Diastolic blood 80 mm[Hg] 80 mm[Hg] Bon [facility] rs pressure [employer] Systolic blood 132 mm[Hg] 132 mm[Hg] Royal s pressure [employer] Oxygen saturation 98 % 98 % [facility] in Arterial blood TessOONi by Pulse oximetry System Inc Respiratory rate 16 /min 16 /min Bon Sec[facility] [employer] Heart rate 85 /min 85 /min [employer] Diastolic blood 86 mm[Hg] 86 mm[Hg] Bon [facility] rs pressure [employer] Systolic blood 135 mm[Hg] 135 mm[Hg] Royal s pressure [employer] Body mass index 36.61 kg/m2 36.61 kg/m2 [facility] (BMI) [Ratio] [employer] Body weight 99.791 kg 99.791 kg [employer] Body height 165.1 cm 165.1 cm [employer] Patient Treatment Plan of Care Planned Activity Planned Date Details Description Data Source (s) celecoxib 200 MG Oral 01/27/2019 12:00:00 [facility] Capsule AM [facility] I nc desloratadine 5 MG Oral 03/28/2018 12:00:00 [facility] Tablet AM [facility] I nc Omeprazole 40 MG Delayed 03/28/2018 12:00:00 [facility] Tess Release Oral Capsule AM [facility] 60 ACTUAT Fluticasone 03/26/2018 12:00:00 [facility] propionate 0.25 MG/ACTUAT AM [facility] / salmeterol 0.05 MG/ACTUAT Dry Powder Inhaler [Advair] montelukast 10 MG Oral 11/30/2017 12:00:00 [facility] Tablet AM [facility] I nc Guaifenesin 400 MG Oral 10/30/2017 12:00:00 [facility] Tablet AM [facility] I nc Amlodipine 5 MG Oral 12/16/2015 12:00:00 [facility] Tablet AM [facility] I nc
[2019-11-26] MEDS ORDERED: PROPOFOL 20 ML ONE ×3 (08:37→12:21)
[2019-11-26] MEDS ORDERED: MIDAZOLAM HCL 2 MG/2 ML SINGLE DOSE VIAL ONE (08:37)
[2019-11-26] MEDS ORDERED: SUCCINYLCHOLINE CHLORIDE 200 MG/10 ML SYRINGE ONE (09:21)
[2019-11-26] MEDS ORDERED: LIDOCAINE HCL 2% (50ML VIAL) NR ONE (09:28)
[2019-11-26 10:02] VITALS: TEMP 98
--- NOTE | 2019-11-26 10:31 | OP ---
DATE OF OPERATION: 11/26/2019 PREOPERATIVE DIAGNOSIS: Right carpal tunnel syndrome. POSTOPERATIVE DIAGNOSIS: Right carpal tunnel syndrome. OPERATIVE PROCEDURE: Right carpal tunnel release. ANESTHESIA: Local with sedation. COMPLICATIONS: None. ESTIMATED BLOOD LOSS: Minimal. INDICATIONS FOR PROCEDURE: A 54-year-old with the above finding indicated for operative treatment. The risks, benefits and alternatives were discussed with patient at length. Proper informed consent was obtained. PROCEDURE: After proper identification of patient and correct operative site, patient was brought to the operating room, placed supine on the table, prominences well padded. Sedation was given by the anesthesiologist. Local anesthesia was given. Right upper extremity was prepped and draped in the usual sterile fashion. Well-padded tourniquet was placed through a sterile prep. Esmarch bandage was used to exsanguinate right upper extremity. Tourniquet was inflated to 250 mmHg. Longitudinal incision was made in the proximal aspect of the palm. Incision was taken sharply through the skin with blunt and sharp dissection through the subcutaneous tissue. Palmar fascia was divided longitudinally. Transverse carpal ligament was divided longitudinally along with the distal 4 cm of the antebrachial fascia under direct visualization with loupe magnification. This provided complete release of the median nerve at the wrist. The wound was repaired with 5-0 fast-absorbing plain gut suture. Sterile dressings were applied. Patient was brought to recovery in stable condition. She tolerated the procedure well. Rico [id number]
[2019-11-26 10:53] VITALS: BP 128/77; PULSE 75
[2019-11-26] MEDS ORDERED: DEXAMETHASONE SOD PHOSPHATE 4 MG/1 ML VIAL ONE (11:57)
[2019-11-26] MEDS ORDERED: ONDANSETRON 4 MG/2 ML VIAL ONE (11:57)
[2019-11-26] MEDS ORDERED: ceFAZolin SODIUM 1 GM VIAL ONE (12:02)
[2019-11-26] MEDS ORDERED: KETOROLAC TROMETHAMINE 30 MG/1 ML VIAL ONE (12:49)
[2019-11-26] MEDS ORDERED: oxyCODONE HCL 5 MG TABLET PO PRN (13:27)
[2019-11-26] MEDS ORDERED: ACETAMINOPHEN 325 MG TABLET (FP) PO PRN (13:27)
[2019-11-26] MEDS ORDERED: ONDANSETRON 4 MG/2 ML VIAL IVPUSH PRN (13:27)
[2019-11-26] MEDS ORDERED: LACTATED RINGERS SOLUTION 1,000 ML IV SCH (13:30)
== END 2019-11-26 10:53 | disposition home or self-care (01) ==
LOC: FASU 07:23
PROVIDERS: ATTEND Orthopaedic Surgery Hand Surgery
PROC: 01N50ZZ Release Median Nerve, Open Approach (ICD-10-PCS; principal; 2019-11-26 09:35)
DX: G56.01 Carpal tunnel syndrome, right upper limb (principal)
CPT/HCPCS: 84703